=== PATIENT | female | born 2000 | race Caucasian/White ===

== ENCOUNTER 2023-08-05 23:41 | Emergency (ER) | payer MEDICAID ==
[~2023-08-05] VITALS: Ht 160 cm; Wt 77.1 kg
[2023-08-06 00:22] VITALS: BP_SYST 115; PULSE 89; RESP 16; TEMP 98; O2SAT 97
== END 2023-08-06 00:12 | disposition left against medical advice (07) ==
LOC: SED 23:41
DX: R11.10 Vomiting, unspecified (principal); Z53.21 Procedure and treatment not carried out due to patient leaving prior to being seen by health care provider
CPT/HCPCS: 99281